=== PATIENT | male | born 1970 | race Caucasian/White ===

== ENCOUNTER 2021-04-10 11:06 | Inpatient (IN) | payer SELFPAY ==
[~2021-04-10] VITALS: Ht 180.3 cm; Wt 68.8 kg
[2021-04-10] MEDS ORDERED: CEFAZOLIN SODIUM 1 GM VIAL IVP SCH (12:30)
[2021-04-10] MEDS ORDERED: BUPIVACAINE/PF 0.5% 10ML VIAL IJ SCH (12:30)
[2021-04-10] MEDS ORDERED: LIDOCAINE HCL 1% 20 ML VIAL INJ SCH (12:30)
[2021-04-10] MEDS ORDERED: TETANUS/DIPHTHERIA TOXOID [ADULT] 0.5 ML VIAL IM ONE (14:00)
[2021-04-10] MEDS ORDERED: ACETAMINOPHEN 325 MG TAB PO PRN (15:00)
[2021-04-10] MEDS ORDERED: ONDANSETRON 4MG INJ IVP PRN (15:00)
[2021-04-10] MEDS ORDERED: PHARMACY COMMUNICATION MISC PRN (16:00)
[2021-04-10] MEDS: NICOTINE 14 MG/ 24 HR PATCH TD SCH (16:00)
[2021-04-10] MEDS ORDERED: LORAZEPAM 2 MG/ML 1 ML VIAL IVP PRN (16:00)
[2021-04-10] MEDS: FOLIC ACID 1 MG TABLET PO SCH (16:00)
[2021-04-10] MEDS ORDERED: CHLORDIAZEPOXIDE HCL 25 MG CAP PO PRN (16:00)
[2021-04-10 16:49] LABS: BASOPHILS % (AUTO) 0.7 % (0.0-5.0); EOSINOPHILS % (AUTO) 1.8 % (0.0-8.0); HEMATOCRIT 46.8 % (42-54); LYMPHOCYTES % (AUTO) 22.1 % (21.0-51.0); MEAN CORPUSCULAR HEMOGLOBIN 28.5 pg (27.0-33.0); MEAN CORPUSCULAR HGB CONC 34.2 g/dL (32.0-36.0); MEAN CORPUSCULAR VOLUME 83.4 fL (79-99); NEUTROPHILS % (AUTO) 63.2 % (40.0-77.0); PLATELET COUNT (AUTO) 173 K/uL (130-400); RED BLOOD CELL COUNT(AUTO) 5.61 MIL/uL (4.50-6.20); RED CELL DISTRIBUTION WIDTH 12.4 % (11.0-15.5); WHITE BLOOD COUNT (AUTO) 5.6 K/uL (4.8-10.8)
[2021-04-10 17:00] LABS: CREATININE 1.1 mg/dL (0.5-1.5)
[2021-04-10] MEDS ORDERED: [UNRECOGNIZED DRUG - MIXTURE] IV SCH (17:00)
[2021-04-10 17:05] LABS: BILIRUBIN,TOTAL 1.7 mg/dL (0.2-1.0); TOTAL PROTEIN, SERUM 7.5 g/dL (6.0-8.3)
[2021-04-10] MEDS: MORPHINE 2 MG SYG IVP PRN (21:08)
[2021-04-11] MEDS: MORPHINE 2 MG SYG IVP PRN ×3 (01:12→15:46)
[2021-04-11] MEDS: CYANOCOBALAMIN (VITAMIN B-12) 100 MCG TABLET PO SCH (09:00)
[2021-04-11] MEDS: FOLIC ACID 1 MG TABLET PO SCH (09:00)
[2021-04-11] MEDS: MULTIVITAMIN TABLET PO SCH (09:00)
[2021-04-11 10:18] LABS: AMPHET/METH SCREEN,URINE NEGATIVE (NEGATIVE); BARBITURATE SCREEN, URINE NEGATIVE (NEGATIVE); BENZODIAZEPINES SCREEN,URINE NEGATIVE (NEGATIVE); CANNABINOID SCREEN,URINE NEGATIVE (NEGATIVE); COCAINE SCREEN,URINE POSITIVE (NEGATIVE); OPIATE SCREEN,URINE NEGATIVE (NEGATIVE); PHENCYCLIDINE SCREEN,URINE NEGATIVE (NEGATIVE)
[2021-04-11] MEDS: NICOTINE 14 MG/ 24 HR PATCH TD SCH (10:27)
[2021-04-11 10:40] VITALS: BP 126/83
[2021-04-11 16:00] VITALS: BP 126/79
[2021-04-11 19:59] VITALS: BP 125/70
[2021-04-11 23:34] VITALS: BP 113/74
[2021-04-12] VITALS (16 sets, daily range): BP systolic 105–136; BP diastolic 63–82
[2021-04-12 05:18] LABS: BASOPHILS % (AUTO) 0.8 % (0.0-5.0); EOSINOPHILS % (AUTO) 3.7 % (0.0-8.0); HEMATOCRIT 47.9 % (42-54); MEAN CORPUSCULAR HEMOGLOBIN 28.3 pg (27.0-33.0); MEAN CORPUSCULAR HGB CONC 33.2 g/dL (32.0-36.0); MEAN CORPUSCULAR VOLUME 85.2 fL (79-99); MONOCYTES % (AUTO) 12.3 % (3.0-13.0); NEUTROPHILS % (AUTO) 48.9 % (40.0-77.0); PLATELET COUNT (AUTO) 171 K/uL (130-400); RED BLOOD CELL COUNT(AUTO) 5.62 MIL/uL (4.50-6.20); WHITE BLOOD COUNT (AUTO) 6.4 K/uL (4.8-10.8)
[2021-04-12 05:36] LABS: ALBUMIN 3.6 g/dL (3.5-5.0); BILIRUBIN,TOTAL 0.5 mg/dL (0.2-1.0); CREATININE 1.3 mg/dL (0.5-1.5); POTASSIUM 3.9 mmol/L (3.5-5.1)
[2021-04-12] MEDS ORDERED: LACTATED RINGERS 1000ML 1,000 ML IV ONE (07:03)
[2021-04-12] MEDS ORDERED: PROPOFOL 10 MG/ML 20ML VIAL IV ONE (07:09)
[2021-04-12] MEDS ORDERED: MIDAZOLAM HCL 1 MG/ML 2ML VIAL ONE (07:09)
[2021-04-12] MEDS ORDERED: FENTANYL CITRATE PF 50 MCG/1 ML 2ML VIAL ONE ×2 (07:09→07:11)
[2021-04-12] MEDS ORDERED: ONDANSETRON 4MG INJ ONE (07:24)
[2021-04-12] MEDS ORDERED: ROCURONIUM 10MG/1ML SYR 10 MG/ML ML ONE (07:30)
[2021-04-12] MEDS ORDERED: CEFAZOLIN SODIUM 2 GM VIAL IV ONE (07:45)
[2021-04-12] MEDS ORDERED: BUPIVACAINE/PF 0.25% 30ML VIAL IJ ONE (07:50)
[2021-04-12] MEDS: NICOTINE 14 MG/ 24 HR PATCH TD SCH (09:16)
[2021-04-12] MEDS: MULTIVITAMIN TABLET PO SCH (09:16)
[2021-04-12] MEDS: CYANOCOBALAMIN (VITAMIN B-12) 100 MCG TABLET PO SCH (09:16)
[2021-04-12] MEDS: FOLIC ACID 1 MG TABLET PO SCH (09:16)
[2021-04-12] MEDS ORDERED: GUAIFENESIN-CODEINE 5 ML SYRUP PO PRN (10:00)
== END 2021-04-12 16:30 | disposition home or self-care (01) | DRG 517 ==
LOC: EDH 11:06 → EDHIP 14:39 → OBSVTOIN 14:39 → 3CH 04-11 10:22
PROVIDERS: ADMIT Hospitalist; ATTEND Hospitalist
PROC: 3E0234Z Introduction of Serum, Toxoid and Vaccine into Muscle, Percutaneous Approach (ICD-10-PCS; 2021-04-10)
PROC: 0PBV0ZZ Excision of Left Finger Phalanx, Open Approach (ICD-10-PCS; principal; 2021-04-12 07:49)
DX: S62.633B Displaced fracture of distal phalanx of left middle finger, initial encounter for open fracture (principal); F10.10 Alcohol abuse, uncomplicated; F17.210 Nicotine dependence, cigarettes, uncomplicated; Z20.822 Contact with and (suspected) exposure to COVID-19; Y93.89 Activity, other specified; Y92.098 Other place in other non-institutional residence as the place of occurrence of the external cause; Y99.8 Other external cause status; Z88.8 Allergy status to other drugs, medicaments and biological substances; Z23 Encounter for immunization
CPT/HCPCS: 36415; 73120; 80053; 80305; 85025; 86850; 86900; 86901; 87635; G0378; J0690; J2250; J2405; J2704; J3010; J3411; J3490; J7030; J7120

== ENCOUNTER 2021-11-16 11:43 | Emergency (ER) | payer OTHER ==
[~2021-11-16] VITALS: Ht 180.3 cm; Wt 74.8 kg
[2021-11-16] MEDS ORDERED: CLIN-141 PO (12:10)
[2021-11-16] MEDS ORDERED: ACET-2079 PO (12:10)
[2021-11-16] MEDS ORDERED: CLINDAMYCIN 150 MG CAP PO ONE (12:30)
[2021-11-16] MEDS ORDERED: ACETAMINOPHEN WITH CODEINE 1 TAB TAB PO ONE (12:30)
[2021-11-16 13:06] VITALS: BP 123/78
== END 2021-11-16 13:05 | disposition home or self-care (01) ==
LOC: EDH 11:43
DX: K03.81 Cracked tooth (principal); K02.9 Dental caries, unspecified; K05.10 Chronic gingivitis, plaque induced; Z88.6 Allergy status to analgesic agent

== ENCOUNTER 2022-01-26 08:27 | Emergency (ER) | payer OTHER ==
[~2022-01-26] VITALS: Ht 180.3 cm; Wt 68.0 kg
[~2022-01-26 08:27] MED LIST: ACET-2079 PO; CLIN-141 PO
[2022-01-26 10:00] LABS: BASOPHILS % (AUTO) 0.3 % (0.0-5.0); EOSINOPHILS % (AUTO) 0.5 % (0.0-8.0); HEMATOCRIT 43.5 % (42-54); LYMPHOCYTES % (AUTO) 12.3 % (21.0-51.0); MEAN CORPUSCULAR HEMOGLOBIN 27.9 pg (27.0-33.0); MEAN CORPUSCULAR HGB CONC 34.9 g/dL (32.0-36.0); MEAN CORPUSCULAR VOLUME 79.8 fL (79-99); MONOCYTES % (AUTO) 6.5 % (3.0-13.0); NEUTROPHILS % (AUTO) 80.1 % (40.0-77.0); PLATELET COUNT (AUTO) 205 K/uL (130-400); RED BLOOD CELL COUNT(AUTO) 5.45 MIL/uL (4.50-6.20); RED CELL DISTRIBUTION WIDTH 13.4 % (11.0-15.5); WHITE BLOOD COUNT (AUTO) 11.8 K/uL (4.8-10.8)
[2022-01-26 10:15] LABS: ALANINE AMINOTRANSFERASE 64 U/L (12-78); ALBUMIN 4.1 g/dL (3.5-5.0); ALCOHOL, BLOOD 58 mg/dL (0-10); ASPARTATE AMINOTRANSFERASE 38 U/L (10-37); CARBON DIOXIDE 26 mmol/L (21-32); CREATINE KINASE, TOTAL 119 U/L (21-232); CREATININE 0.9 mg/dL (0.5-1.5); GLOMERULAR FILTR. RATE CALC 95 mL/min (>60); GLUCOSE,RANDOM 85 mg/dL (70-105); TOTAL PROTEIN, SERUM 7.7 g/dL (6.0-8.3); UREA NITROGEN, BLOOD 12 mg/dL (7-18)
[2022-01-26 10:16] LABS: SALICYLATE < 2.8 mg/dL (2.8-20.0)
[2022-01-26 10:17] LABS: ACETAMINOPHEN < 1 mcg/mL (10-29)
[2022-01-26 10:20] LABS: CHLORIDE 98 mmol/L (101-111); POTASSIUM 3.9 mmol/L (3.5-5.1); SODIUM SERUM 135 mmol/L (136-145)
[2022-01-26 10:28] LABS: APPEARANCE,URINE CLEAR (CLEAR); BILIRUBIN,URINE NEGATIVE (NEGATIVE); COLOR,URINE YELLOW (YELLOW); GLUCOSE, URINE (UA) NEGATIVE (NEGATIVE); KETONES,URINE NEGATIVE (NEGATIVE); LEUKOCYTE ESTERASE ,URINE NEGATIVE Leu/uL (NEGATIVE); NITRATE,URINE NEGATIVE (NEGATIVE); OCCULT BLOOD,URINE NEGATIVE (NEGATIVE); PROTEIN,URINE NEGATIVE (NEGATIVE); UROBILINOGEN,URINE 0.2 mg/dL (0.2-1.0)
[2022-01-26 10:33] LABS: AMPHET/METH SCREEN,URINE NEGATIVE (NEGATIVE); BARBITURATE SCREEN, URINE NEGATIVE (NEGATIVE); BENZODIAZEPINES SCREEN,URINE NEGATIVE (NEGATIVE); CANNABINOID SCREEN,URINE NEGATIVE (NEGATIVE); COCAINE SCREEN,URINE POSITIVE (NEGATIVE); PHENCYCLIDINE SCREEN,URINE NEGATIVE (NEGATIVE)
[2022-01-26 13:27] VITALS: BP 119/81
[2022-01-26] MEDS ORDERED: ONDANSETRON ODT 4MG TAB SL ONE (13:30)
== END 2022-01-26 13:51 | disposition home or self-care (01) ==
LOC: EDH 08:27
DX: T40.2X1A Poisoning by other opioids, accidental (unintentional), initial encounter (principal); F19.10 Other psychoactive substance abuse, uncomplicated; Z88.6 Allergy status to analgesic agent; Y92.89 Other specified places as the place of occurrence of the external cause
CPT/HCPCS: 99285; 71045; 82550; 80053; 80305; 85025; 36415; 93005; 81003; G0481